=== PATIENT | male | born 1970 | race Caucasian/White ===

== ENCOUNTER → 2017-04-17 | Outpatient (CLI) | payer OTHER ==
[2017-04-17 12:17] LABS: ALT/SGPT 53 U/L (12-78); BLOOD UREA NITROGEN 5 mg/dl (7-18); BUN/CREATININE RATIO 5.6 (10-20); CALCIUM 8.3 mg/dl (8.5-10.1); CARBON DIOXIDE 24 mmol/L (21-32); CHLORIDE 92 mmol/L (98-107); CHOLESTEROL 143 mg/dl (0-200); CREATININE 0.82 mg/dl (0.60-1.40); GLUCOSE,FASTING 93 mg/dl (70-99); POTASSIUM 4.3 mmol/L (3.5-5.1); SODIUM 125 mmol/L (136-145); TRIGLYCERIDES 96 mg/dl (0-150); VERY LOW DENSITY LIPOPROT CALC 19 mg/dl
[2017-04-17 12:20] LABS: ALB/GLOB RATIO 0.9 (0.9-2); ALKALINE PHOSPHATASE 68 U/L (45-117); AST/SGOT 35 U/L (15-37); CHOLESTEROL/HDL RATIO 3.2; HDL CHOLESTEROL 45 mg/dl; LDL CHOLESTEROL CALCULATED 79 mg/dl
== END | disposition home or self-care (01) ==
LOC: C.LABPBG 09:55
PROVIDERS: ATTEND Physician Assistant
DX: Z00.00 Encounter for general adult medical examination without abnormal findings (principal)

== ENCOUNTER → 2017-05-10 | Outpatient (CLI) | payer OTHER ==
[2017-05-10 12:42] LABS: BLOOD UREA NITROGEN 6 mg/dl (7-18); BUN/CREATININE RATIO 6.7 (10-20); CREATININE 0.89 mg/dl (0.60-1.40)
== END | disposition home or self-care (01) ==
LOC: C.LABPBG 08:21
PROVIDERS: ATTEND Physician Assistant
DX: R79.89 Other specified abnormal findings of blood chemistry (principal)

== ENCOUNTER 2021-04-20 17:09 | Inpatient (IN) ==
[2021-04-20 18:07] LABS: Basophils # (auto) 0.02 K/uL (0-0.2); Basophils % (auto) 0.4 %; Eosinophils # (auto) 0.17 K/uL (0-0.5); Eosinophils % (auto) 3.4 %; Hematocrit (blood only) 43.8 % (42-52); Hemoglobin 15.3 g/dL (14.0-18.0); Immature Granulocytes # (auto) 0.01 K/uL (0.00-0.02); Immature Granulocytes % (auto) 0.2 %; Lymphocytes # (auto) 1.33 K/uL (1.2-3.4); Lymphocytes % (auto) 26.5 %; Mean Corpuscular Hemoglobin 33.9 pg (25-34); Mean Corpuscular Hgb Conc 34.9 g/dL (32-36); Mean Corpuscular Volume 97.1 fL (80-100); Mean Platelet Volume 8.5 fL (7.4-10.4); Monocytes # (auto) 0.49 K/uL (0.11-0.59); Monocytes % (auto) 9.8 %; Neutrophils # (auto) 2.99 K/uL (1.4-6.5); Neutrophils % (auto) 59.7 %; Platelet Count 152 K/uL (130-400); RDW Coefficient of Variation 14.2 % (11.5-14.5); RDW Standard Deviation 50.4 fL (36.4-46.3); Red Blood Count 4.51 M/uL (4.7-6.1); White Blood Count 5.01 K/uL (4.8-10.8)
[2021-04-20 18:18] LABS: INR 1.1 (0.9-1.1); Partial Thromboplastin Ratio 0.9; Partial Thromboplastin Time 24.8 Seconds (21.0-31.0)
[2021-04-20 18:23] LABS: Alanine Aminotransferase 69 U/L (12-78); Albumin Level 3.7 gm/dl (3.4-5.0); Aspartate Aminotransferase 60 U/L (15-37); Blood Urea Nitrogen 13 mg/dl (7-18); Calcium 8.8 mg/dl (8.5-10.1); Carbon Dioxide 26 mmol/L (21-32); Chloride 105 mmol/L (98-107); Creatinine Clr Calc Pharmacy 116.1 ml/min; Est GFR (African American) 98.7 ml/min; Est GFR (Non-African American) 85.1 ml/min; Glucose 79 mg/dl (70-99); Potassium 3.6 mmol/L (3.5-5.1); Sodium 138 mmol/L (136-145)
[2021-04-20 18:28] LABS: Albumin Globulin Ratio 0.9 (0.9-2); Alkaline Phosphatase 54 U/L (45-117); Bilirubin,Total 1.4 mg/dl (0.2-1); Total Protein 7.7 gm/dl (6.4-8.2); Troponin I < 0.015 ng/ml (0-0.045)
--- NOTE | 2021-04-20 19:52 | Emergency Department Note ---
Impression & Plan Occipital stroke, Hypertensive crisis, SARS-CoV-2 positive ED Provider Note Name: CARLOS ALBERTO YOUNGBLOOD Age: 50 Sex: M Arrives Via: Walk-In Informant: Patient, ED Provider: Shimon Gutiérrez MD Chief Complaint: HTN Impression: See Above Medical Decision Makin yr old male with history of HTN off his Lisinopril for some time now. Arrives with elevated blood present sent by PCP office. In addition he notes difficulty with focusing his vision for the last four days. No other neuro deficits nor headache. States currently no visual issues. He is quite hy pertensive and several rounds of IV labetalol given. CT with left occipital stroke vs edema. Discussed with Neuro who advised MRI w wo con, CT angio head/neck. Hospitalist consulted while awaiting these. Patient given ASA 324mg PO. He returned positive for covid though I will note he is symptom free at this time and is vaccinated. MRI confirmed stroke, no cerebellar issues noted by Radiologist. No dissection on CTA nor focal thrombus. Symptoms ongoing for the last 4 days and is not TPA candidate nor is there evidence of need for neuro IR. Stable and breathing comfortably. Prior Medical Record and Triage/Nursing Notes reviewed by Me Additional history obtained from chart Differentials:Benign hypertension, hypertensive emergency, cardiovascular pathology, toxicologic, pheochromocytoma, electrolyte abnormality, renal disease, endorgan damage, as well as other pathologies. Vital Signs: reviewed and remarkable for HTN Interventions: saline lock, labetalol IV x 3, asa 324mg PO Labs:Reviewed and remarkable for Covid Positive Imaging:See Below EKG:Per My Interpretation: Indication HTN: NSR 84 bpm, qtc [address] abnormalities V1. No Ectopy. No Ischemia. No previous for comparison Cardiac/Tele Monitoring: Cardiac Monitoring: An Order was placed for continuous cardiac monitoring. The monitor shows a rate of 80 with a normal sinus rhythm. Consults:Dr Wilkinson Neuro, Dr Garcia Hospitalist Plan: Disposition:Hospitalization. Condition: Good History of Present Illness:50 yr old male arrives for evaluation of hypertension. Patient notes several days of not being able to focus his vision properly. No headache, weakness, syncope, blackening of vision, neck pain, sob, cp, nor other symptoms. Seen by PCP and noted severe HTN thus sent to ED for evaluation. Patient denies any symptoms currently. No medications prior to arrival. History of HTN though not on lisinopril for last few years due to stomach discomfort while on it. No trauma, injuries, nor falls. Nothing makes better nor worse. Family history of DMII but not cad, cva. ROS: See above HPI for pertinent positives & negatives. A total of 10 systems reviewed and were otherwise negative. Past Medical History:HTN Past Surgical History:Right hand surgery Family History:Father/Mother DMII, mother cancer Social History:Works at [employer], no drugs, daily etoh, uses chewing tobacco, no smoking Home Medications:None Allergies:NKDA Vitals:Blood Pressure: 255/170, Pulse 88, RR 16, T 36.8C, O2 95% on RA Physical Exam: GENERAL: Patient is well appearing and in no distress. EYES: No scleral icterus, unremarkable pupils. ENT: Mucous membranes moist, no nasal congestion. NECK: No masses appreciated, nomeningismus, trachea is midline. RESPIRATORY: No dyspnea. Clear to auscultation and equal bilaterally. No wheeze, no rhonchi. CARDIOVASCULAR: Regular rate and rhythm.No murmurs, rubs, gallops appreciated. GASTROINTESTINAL: Abdomen soft, non-tender, no peritonitis.Bowel sounds positive.No masses appreciated. BACK: No midline tenderness, no CVA tenderness EXTREMITIES: Normal motion all extremities, no cyanosis, no edema. NEUROLOGIC: Alert and oriented, no acute motor or sensory deficits, no focal weakness, cranial nerves grossly intact. SKIN: No rash, no jaundice, no diaphoresis. PSYCH: Appropriate GCS: 15 ED Course: Times/Reassessments: gradually improving BP from initial 250s. No neuro deficits. Agreeable to hospitalization Critical Care: I have personally spent 35 minutes of critical care time in the direct management of this patient. Acute Hypertensive Crisis in setting of stroke with multiple antihypertensives IV. This was a life/limb threatening event. This 35 minutes is in excess of all separately billable procedures. Shimon Gutiérrez MD Past Med/Surg History Social History Smoking Status: Never smoker Tobacco Type: Cigarettes and Smokeless Tobacco (Dip or Chew) Second Hand Exposure: No; Do You Dip or Chew Tobacco: Yes; Tobacco Cessation Education Requested by Patient: No Hx Alcohol Use: Yes Alcohol type: beer Hx Substance Use: No Preferred Language: Thai Communication Ability: Effective Geospatial Information Scientist Required: No Beliefs That Will Affect Care: None Current Living Situation: Other Current Living Situation Comment: significant other Other Information That Helps Us Care for You: No Feels Safe at Home: Yes Safety Concerns: Feels Safe At This Time Assistive Devices: Glasses Allergies Allergies Allergy/AdvReac Type Severity Reaction Status Date / Time No Known Allergies Allergy Unverified 04/20/21 20:50 Home Meds Home Medications Medication Instructions Recorded Confirmed No Known Home Medications 04/20/21 04/20/21 Results & Data (ED) Vital Signs Vital Signs - 24 hr 04/20/21 17:21 04/20/21 20:04 04/20/21 20:08 Temperature 36.8 C Temperature Source Temporal Artery Scan Pulse Rate 88 77 Pulse Rate from SpO2 Sensor 77 Respiratory Rate 16 18 Blood Pressure 223/139 H 201/165 H Blood Pressure Mean 167 177 Pulse Oximetry 95 96 96 Oxygen Delivery Method Room Air Room Air Sepsis Recent Fever Within 48 Hours No Sepsis New/Unexplained Change in Mental Status No Sepsis Action Taken by Nursing No Action Required 04/20/21 20:37 04/20/21 21:00 04/20/21 21:26 Temperature Temperature Source Pulse Rate 79 74 76 Pulse Rate from SpO2 Sensor 72 73 76 Respiratory Rate 22 19 19 Blood Pressure 210/142 H 221/139 H 219/133 H Blood Pressure Mean 164 166 161 Pulse Oximetry 95 95 96 Oxygen Delivery Method Sepsis Recent Fever Within 48 Hours Sepsis New/Unexplained Change in Mental Status Sepsis Action Taken by Nursing 04/20/21 21:30 04/20/21 22:02 04/20/21 23:07 Temperature Temperature Source Pulse Rate 75 73 Pulse Rate from SpO2 Sensor 76 74 Respiratory Rate 22 20 14 Blood Pressure 210/147 H Blood Pressure Mean 168 Pulse Oximetry 96 96 Oxygen Delivery Method Sepsis Recent Fever Within 48 Hours Sepsis New/Unexplained Change in Mental Status Sepsis Action Taken by Nursing 04/20/21 23:30 Temperature Temperature Source Pulse Rate 70 Pulse Rate from SpO2 Sensor 70 Respiratory Rate 20 Blood Pressure Blood Pressure Mean Pulse Oximetry 95 Oxygen Delivery Method Sepsis Recent Fever Within 48 Hours Sepsis New/Unexplained Change in Mental Status Sepsis Action Taken by Nursing Laboratory Data Result diagrams: 04/20/21 17:48 04/20/21 17:48 Lab Results 04/20/21 04/20/21 04/20/21 Range/Units 17:48 17:48 17:48 WBC 5.01 (4.8-10.8) K/uL RBC 4.51 L (4.7-6.1) M/uL Hgb 15.3 (14.0-18.0) g/dL Hct 43.8 (42-52) % MCV 97.1 (80-100) fL MCH 33.9 (25-34) pg MCHC 34.9 (32-36) g/dL RDW Std Deviation 50.4 H (36.4-46.3) fL RDW Coeff of Chanell 14.2 (11.5-14.5) % Plt Count 152 (130-400) K/uL MPV 8.5 (7.4-10.4) fL Immature Gran % (Auto) 0.2 % Neut % (Auto) 59.7 % Lymph % (Auto) 26.5 % Pratt % (Auto) 9.8 % Eos % (Auto) 3.4 % Baso % (Auto) 0.4 % Neut # (Auto) 2.99 (1.4-6.5) K/uL Lymph # (Auto) 1.33 (1.2-3.4) K/uL Pratt # (Auto) 0.49 (0.11-0.59) K/uL Eos # (Auto) 0.17 (0-0.5) K/uL Baso # (Auto) 0.02 (0-0.2) K/uL Immature Gran # (Auto) 0.01 (0.00-0.02) K/uL PT 11.0 (9.0-12.0) Seconds INR 1.1 (0.9-1.1) APTT 24.8 (21.0-31.0) Seconds PTT Ratio 0.9 Sodium 138 (136-145) mmol/L Potassium 3.6 (3.5-5.1) mmol/L Chloride 105 (98-107) mmol/L Carbon Dioxide 26 (21-32) mmol/L Anion Gap 7.0 (3-11) BUN 13 (7-18) mg/dl Creatinine 1.01 (0.6-1.4) mg/dl Est Cr Clr Drug Dosing 116.1 ml/min Est GFR ( Amer) 98.7 ml/min Est GFR (Non-Af Amer) 85.1 ml/min BUN/Creatinine Ratio 13.0 (10-20) Glucose 79 (70-99) mg/dl Calcium 8.8 (8.5-10.1) mg/dl Magnesium 1.8 (1.8-2.4) mg/dl Total Bilirubin 1.4 H (0.2-1) mg/dl AST 60 H (15-37) U/L ALT 69 (12-78) U/L Alkaline Phosphatase 54 (45-117) U/L Troponin I < 0.015 (0-0.045) ng/ml Total Protein 7.7 (6.4-8.2) gm/dl Albumin 3.7 (3.4-5.0) gm/dl Globulin 4.0 (2.5-4.0) gm/dl Albumin/Globulin Ratio 0.9 (0.9-2) TSH 8.310 H (0.300-4.500) uIu/ml Free T4 1.06 (0.8-1.6) ng/dl COVID-19 Eval Order SARS-CoV-2 (PCR) (Negative) 04/20/21 04/20/21 Range/Units 20:00 20:00 WBC (4.8-10.8) K/uL RBC (4.7-6.1) M/uL Hgb (14.0-18.0) g/dL Hct (42-52) % MCV (80-100) fL MCH (25-34) pg MCHC (32-36) g/dL RDW Std Deviation (36.4-46.3) fL RDW Coeff of Chanell (11.5-14.5) % Plt Count (130-400) K/uL MPV (7.4-10.4) fL Immature Gran % (Auto) % Neut % (Auto) % Lymph % (Auto) % Pratt % (Auto) % Eos % (Auto) % Baso % (Auto) % Neut # (Auto) (1.4-6.5) K/uL Lymph # (Auto) (1.2-3.4) K/uL Pratt # (Auto) (0.11-0.59) K/uL Eos # (Auto) (0-0.5) K/uL Baso # (Auto) (0-0.2) K/uL Immature Gran # (Auto) (0.00-0.02) K/uL PT (9.0-12.0) Seconds INR (0.9-1.1) APTT (21.0-31.0) Seconds PTT Ratio Sodium (136-145) mmol/L Potassium (3.5-5.1) mmol/L Chloride (98-107) mmol/L Carbon Dioxide (21-32) mmol/L Anion Gap (3-11) BUN (7-18) mg/dl Creatinine (0.6-1.4) mg/dl Est Cr Clr Drug Dosing ml/min Est GFR ( Amer) ml/min Est GFR (Non-Af Amer) ml/min BUN/Creatinine Ratio (10-20) Glucose (70-99) mg/dl Calcium (8.5-10.1) mg/dl Magnesium (1.8-2.4) mg/dl Total Bilirubin (0.2-1) mg/dl AST (15-37) U/L ALT (12-78) U/L Alkaline Phosphatase (45-117) U/L Troponin I (0-0.045) ng/ml Total Protein (6.4-8.2) gm/dl Albumin (3.4-5.0) gm/dl Globulin (2.5-4.0) gm/dl Albumin/Globulin Ratio (0.9-2) TSH (0.300-4.500) uIu/ml Free T4 (0.8-1.6) ng/dl COVID-19 Eval Order Covid19 at [facility] SARS-CoV-2 (PCR) POSITIVE A* (Negative) Administered Medications Potassium Chloride 40 meq/ (Sodium Chloride) 1,020 mls @ 50 mls/hr IV .[id number] ONE Stop: 04/21/21 22:08 Last Admin: 04/21/21 02:20 Dose: 50 mls/hr Documented by: [id number] Discontinued Medications Aspirin (Aspirin Chew 324 Mg) 324 mg PO NOW STA Stop: 04/20/21 21:13 Last Admin: 04/20/21 21:25 Dose: 324 mg Documented by: [id number] Gadobutrol (Gadobutrol 65ml Vial) 12.5 ml IV ONCE ONE Stop: 04/20/21 22:55 Last Admin: 04/20/21 22:54 Dose: 12.5 ml Documented by: [id number] Hydralazine HCl (Hydralazine Hcl 20 Mg/Ml Vial) 5 mg IV NOW ONE Stop: 04/21/21 00:45 Last Admin: 04/21/21 01:00 Dose: Not Given Documented by: [id number] Hydralazine HCl (Hydralazine Hcl 20 Mg/Ml Vial) Confirm Administered Dose 20 mg .ROUTE .STK-MED ONE Stop: 04/21/21 00:49 Last Increment: 04/21/21 01:00 Dose: 5 mg Documented by: [id number] Thiamine HCl 100 mg/ Syringe 10 mls @ 2 mls/min IV NOW STA Stop: 04/20/21 22:05 Last Admin: 04/20/21 23:08 Dose: 2 mls/min Documented by: [id number] Ioversol (Optiray 320 125ml) 117 ml IV ONCE ONE Stop: 04/20/21 22:09 Last Admin: 04/20/21 22:08 Dose: 117 ml Documented by: [id number] Labetalol HCl (Labetalol Hcl Iv 5 Mg/Ml 20ml) 10 mg IV NOW STA Stop: 04/20/21 20:30 Last Admin: 04/20/21 20:36 Dose: 10 mg Documented by: [id number] Cosigned by: [id number] Labetalol HCl (Labetalol Hcl Iv 5 Mg/Ml 20ml) 10 mg IV NOW STA Stop: 04/20/21 21:06 Last Admin: 04/20/21 21:24 Dose: 10 mg Documented by: [id number] Cosigned by: [id number] Lisinopril (Lisinopril 5 Mg Tab) 5 mg PO NOW ONE Stop: 04/21/21 00:18 Last Admin: 04/21/21 00:30 Dose: 5 mg Documented by: [id number] Imaging Data Radiologist's Impression: Chest X-Ray 04/20/21 17:24 SINGLE VIEW CHEST CLINICAL HISTORY: Atypical chest pain. FINDINGS: 2 AP, portable, upright chest radiographs are obtained. No prior studies are available for comparison at the time of dictation. The examination is degraded by portable technique and apical lordotic positioning. The heart is enlarged. The pulmonary vasculature is noncongested. There is bibasilar atelectasis. The lungs and pleural spaces are otherwise clear. No pneumothorax is seen. The bony thorax is grossly intact. IMPRESSION: Cardiomegaly with no active disease in the chest. ACT 112: Negative or not required by law. Electronically signed by: Zion Nino M.D. 04/20/2021 8:[address] 04/20/21 19:47 CT SCAN OF THE BRAIN WITHOUT IV CONTRAST CLINICAL HISTORY: Hypertension. Visual disturbances. COMPARISON STUDY: No priors. TECHNIQUE: Unenhanced axial CT scan of the brain is performed from the vertex to the skull base. A dose lowering technique was utilized adhering to the principles of ALARA. CT DOSE: 638.56 mGycm FINDINGS: Brain parenchyma: There is a 2.6 cm focus of edema with loss of cardona-white matter differentiation in the left occipital cortex seen on image #12. There is no clear evidence of hemorrhage, no significant mass effect. No additional similar-appearing foci are seen throughout the remainder of the brain parenchyma. No extra-axial fluid collection is seen. Ventricles, sulci, cisterns: Normal in configuration. Intracranial vasculature: There is mild atherosclerotic calcification of the cavernous carotid and vertebral arteries. Calvarium: Unremarkable. Sinuses and mastoids: There is trace mucosal thickening within the ethmoid sinuses. The remaining visualized paranasal sinuses are clear. The mastoid air cells are well pneumatized. Orbits: The bony orbits are grossly intact. IMPRESSION: 1. There is a 2.6 cm focus of edema with loss of cardona-white matter differentiation in the left occipital cortex. This could represent a subacute infarct or possibly a mass lesion. Correlation with a contrast-enhanced MRI of the brain is recommended for further assessment. 2. No hemorrhage is seen. 3. There is no midline shift additional similar-appearing lesions seen throughout the brain parenchyma. ACT 112: Negative or not required by law. Electronically signed by: Zion Nino M.D. 04/20/2021 8:35 PM Discharge Plan Visit Data Chief Complaint: Hypertension Stated Complaint: HYPERTENSION ED Provider: Shimon Gutiérrez Discharge Problem: Occipital stroke, Hypertensive crisis, SARS-CoV-2 positive Discharge Instructions Interventions: ED Discharge Assessment Last Done: 04/21/21 01:00
--- NOTE | 2021-04-20 20:18 | XRay Report ---
SINGLE VIEW CHEST CLINICAL HISTORY: Atypical chest pain. FINDINGS: 2 AP, portable, upright chest radiographs are obtained. No prior studies are available for comparison at the time of dictation. The examination is degraded by portable technique and apical [place] dotic positioning. The heart is enlarged. The pulmonary vasculature is noncongested. There is bibasil ar atelectasis. The lungs and pleural spaces are otherwise clear. No pneumothorax is seen. The bony t horax is grossly intact. IMPRESSION: Cardiomegaly with no active disease in the chest. ACT 112: Negative or not required by law. Electronically signed by: Zion Nino M.D. 04/20/2021 8:16 PM
[2021-04-20] MEDS ORDERED: LABETALOL HCL IV 5 MG/ML 20ML IV STA ×2 (20:29→21:05)
--- NOTE | 2021-04-20 20:37 | CT Scan Report ---
CT SCAN OF THE BRAIN WITHOUT IV CONTRAST CLINICAL HISTORY: Hypertension. Visual disturbances. COMPARISON STUDY: No priors. TECHNIQUE: Unenhanced axial CT scan of the brain is performed from the vertex to the skull base. A d ose lowering technique was utilized adhering to the principles of ALARA. CT DOSE: 638.56 mGycm FINDINGS: Brain parenchyma: There is a 2.6 cm focus of edema with loss of cardona-white matter differentiation in the left occipital cortex seen on image #12. There is no clear evidence of hemorrhage, no significant mass effect. No additional similar-appearing foci are seen throughout the remainder of the brain par enchyma. No extra-axial fluid collection is seen. Ventricles, sulci, cisterns: Normal in configuration. Intracranial vasculature: There is mild atherosclerotic calcification of the cavernous carotid and ve rtebral arteries. Calvarium: Unremarkable. Sinuses and mastoids: There is trace mucosal thickening within the ethmoid sinuses. The remaining vis ualized paranasal sinuses are clear. The mastoid air cells are well pneumatized. Orbits: The bony orbits are grossly intact. IMPRESSION: 1. There is a 2.6 cm focus of edema with loss of cardona-white matter differentiation in the left occipi garret cortex. This could represent a subacute infarct or possibly a mass lesion. Correlation with a con trast-enhanced MRI of the brain is recommended for further assessment. 2. No hemorrhage is seen. 3. There is no midline shift additional similar-appearing lesions seen throughout the brain parenchym a. ACT 112: Negative or not required by law. Electronically signed by: Zion Nino M.D. 04/20/2021 8:35 PM
[2021-04-20] MEDS ORDERED: ASPIRIN CHEW 324 MG PO STA (21:12)
[2021-04-20 21:49] LABS: Magnesium 1.8 mg/dl (1.8-2.4)
[2021-04-20] MEDS ORDERED: THIAMINE HCL 100 MG in SYRINGE 9 ML IV STA (22:01)
[2021-04-20 22:02] LABS: T4 Free Thyroxine 1.06 ng/dl (0.8-1.6)
[2021-04-20] MEDS ORDERED: OPTIRAY 320 125ml IV ONE (22:08)
[2021-04-20] MEDS ORDERED: GADOBUTROL 65ML VIAL IV ONE (22:54)
--- NOTE | 2021-04-20 23:55 | History & Physical Report ---
Date of Service April 20, 2021 Assessment & Plan (1) Occipital stroke: Plan: Presenting as alexia Hypertensive crisis secondary to above History medication noncompliance Alcohol abuse contributory Alcoholic hepatitis, good prognosis with low Madrey's DF score asymptomatic COVID-19 infection. past tobacco abuse Medical telemetry Neurochecks Aspirin, statin for secondary stroke prevention TTE for additional stroke work-up Check lipid profile Permissive hypertension, initiate low-dose lisinopril if SBP persistently above 200s HARSHIL S, DT precautions Neurology consult Re: Occipital stroke (ER provider already in touch with Dr. Wilkinson.) COVID-19 precautions DVT prophylaxis. Lovenox subcu Full code Patient partner requesting updates from providers. Ms. Gosia De La Torre, contact #[phone]. Text document was generated using [employer] voice recognition software. It may contain grammatical or spelling errors. Kindly contact undersigned for clarification of any documentation item in question. ADDENDUM : Notified by SENIOR CONTROLS ANALYST of apneic episodes during sleep, episodic sinus pauses/bradycardia on the floor. Possible sleep disordered breathing. Episodic bradyarrhythmia secondary to above. Outpatient sleep study. Avoid as needed labetalol for uncontrolled BP. History of Present Illness Chief Complaint: Cannot understand what I'm reading Primary Care Provider: Bhavesh José DO History obtained from patient and records. Medical history significant for hypertension, alcohol abuse, past tobacco abuse, medication noncompliance. Patient has not seen his PCP for about 4 years. Last office visit October 2016. Patient also stopped taking lisinopril for blood pressure at that time because he did not think he needed it. Patient having trouble reading words the last few days. Vision not blurred. Not able to understand what I am reading as per patient. No prior episodes. No headache, no chest pain, no S OB, no cough. No arm/leg weakness. No slurred speech or facial droop noted by . SBP 200s at PCPs office today. Patient directed to ER for further management. Aspirin and labetalol administered at the ER. Medical History as above Patient completed COVID-19 vaccination. 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, mechanical technician Allergies Allergy/AdvReac Type Severity Reaction Status Date / Time No Known Allergies Allergy Unverified 04/20/21 20:50 Home Medications Medication Instructions Recorded Confirmed Type No Known Home Medications 04/20/21 04/20/21 History Past Med/Surg History Social History Smoking Status: Never smoker Tobacco Type: Cigarettes and Smokeless Tobacco (Dip or Chew) Second Hand Exposure: No; Do You Dip or Chew Tobacco: Yes; Tobacco Cessation Education Requested by Patient: No Hx Alcohol Use: Yes Alcohol type: beer Hx Substance Use: No Preferred Language: Vincentian Communication Ability: Effective Drywall Hanger Required: No Beliefs That Will Affect Care: None Current Living Situation: Other Current Living Situation Comment: significant other Other Information That Helps Us Care for You: No Feels Safe at Home: Yes Safety Concerns: Feels Safe At This Time Assistive Devices: Glasses Review of Systems Review of Systems: As per HPI, all 10 systems reviewed, all other ROS negative Physical Exam Physical Exam: GENERAL: Comfortable, morbidly obese, pleasant, no respiratory distress SKIN: Normal color, warm HEENT: Healed scar frontal area, [place] palpebral conjunctivae, no ptosis, dry buccal mucosa NECK : Supple, short neck, no tenderness CHEST : CTA, no tenderness HEART : RRR, no obvious murmurs ABDOMEN: Some distention, nontender EXTREMITIES : Minimal LE swelling, no LE tenderness, no other conspicuous deformities noted NEUROLOGIC : Coherent, gross visual activity intact, no facial asymmetry, no other gross focality Results & Data Results & Data ([facility]) Vital Signs (Past 12 Hours) Vital Signs Temp Pulse Resp BP Pulse Ox 04/20/21 22:02 73 20 96 04/20/21 21:30 75 22 210/147 H 96 04/20/21 21:26 76 19 219/133 H 96 04/20/21 21:00 74 19 221/139 H 95 04/20/21 20:37 79 22 210/142 H 95 04/20/21 20:08 96 04/20/21 20:04 77 18 201/165 H 96 04/20/21 17:21 36.8 C 88 16 223/139 H 95 Laboratory Results Laboratory Results WBC 4.56 K/uL (4.8-10.8) L 04/21/21 06:19 RBC 4.47 M/uL (4.7-6.1) L 04/21/21 06:19 Hgb 15.3 g/dL (14.0-18.0) 04/21/21 06:19 Hct 43.7 % (42-52) 04/21/21 06:19 MCV 97.8 fL (80-100) 04/21/21 06:19 MCH 34.2 pg (25-34) H 04/21/21 06:19 MCHC 35.0 g/dL (32-36) 04/21/21 06:19 RDW Std Deviation 51.1 fL (36.4-46.3) H 04/21/21 06:19 RDW Coeff of Chanell 14.3 % (11.5-14.5) 04/21/21 06:19 Plt Count 149 K/uL (130-400) 04/21/21 06:19 MPV 8.4 fL (7.4-10.4) 04/21/21 06:19 Immature Gran % (Auto) 0.2 % 04/21/21 06:19 Neut % (Auto) 55.5 % 04/21/21 06:19 Lymph % (Auto) 28.5 % 04/21/21 06:19 [place] % (Auto) 10.5 % 04/21/21 06:19 Eos % (Auto) 4.2 % 04/21/21 06:19 Baso % (Auto) 1.1 % 04/21/21 06:19 Neut # (Auto) 2.53 K/uL (1.4-6.5) 04/21/21 06:19 Lymph # (Auto) 1.30 K/uL (1.2-3.4) 04/21/21 06:19 [place] # (Auto) 0.48 K/uL (0.11-0.59) 04/21/21 06:19 Eos # (Auto) 0.19 K/uL (0-0.5) 04/21/21 06:19 Baso # (Auto) 0.05 K/uL (0-0.2) 04/21/21 06:19 Immature Gran # (Auto) 0.01 K/uL (0.00-0.02) 04/21/21 06:19 PT 11.0 Seconds (9.0-12.0) 04/20/21 17:48 INR 1.1 (0.9-1.1) 04/20/21 17:48 APTT 24.8 Seconds (21.0-31.0) 04/20/21 17:48 PTT Ratio 0.9 04/20/21 17:48 Sodium 137 mmol/L (136-145) 04/21/21 06:19 Potassium 4.1 mmol/L (3.5-5.1) 04/21/21 06:19 Chloride 104 mmol/L (98-107) 04/21/21 06:19 Carbon Dioxide 26 mmol/L (21-32) 04/21/21 06:19 Anion Gap 7.0 (3-11) 04/21/21 06:19 BUN 13 mg/dl (7-18) 04/21/21 06:19 Creatinine 1.05 mg/dl (0.6-1.4) 04/21/21 06:19 Est Cr Clr Drug Dosing 110.5 ml/min 04/21/21 06:19 Est GFR ( Amer) 94.1 ml/min 04/21/21 06:19 Est GFR (Non-Af Amer) 81.2 ml/min 04/21/21 06:19 BUN/Creatinine Ratio 12.6 (10-20) 04/21/21 06:19 Glucose 100 mg/dl (70-99) H 04/21/21 06:19 Calcium 8.9 mg/dl (8.5-10.1) 04/21/21 06:19 Magnesium 1.8 mg/dl (1.8-2.4) 04/20/21 17:48 Total Bilirubin 1.5 mg/dl (0.2-1) H 04/21/21 06:19 Direct Bilirubin 0.4 mg/dl (0-0.2) H 04/21/21 06:19 AST 52 U/L (15-37) H 04/21/21 06:19 ALT 65 U/L (12-78) 04/21/21 06:19 Alkaline Phosphatase 49 U/L (45-117) 04/21/21 06:19 Troponin I < 0.015 ng/ml (0-0.045) 04/20/21 17:48 Total Protein 7.4 gm/dl (6.4-8.2) 04/21/21 06:19 Albumin 3.5 gm/dl (3.4-5.0) 04/21/21 06:19 Globulin 4.0 gm/dl (2.5-4.0) 04/20/21 17:48 Albumin/Globulin Ratio 0.9 (0.9-2) 04/20/21 17:48 Triglycerides 65 mg/dl (0-150) 04/21/21 06:19 Cholesterol 180 mg/dl (0-200) 04/21/21 06:19 LDL Cholesterol, Calc 117 mg/dl 04/21/21 06:19 VLDL Cholesterol, Calc 13 mg/dl 04/21/21 06:19 HDL Cholesterol 50 mg/dl 04/21/21 06:19 Cholesterol/HDL Ratio 4 04/21/21 06:19 TSH 8.310 uIu/ml (0.300-4.500) H 04/20/21 17:48 Free T4 1.06 ng/dl (0.8-1.6) 04/20/21 17:48 COVID-19 Eval Order Covid19 at [facility] 04/20/21 20:00 SARS-CoV-2 (PCR) POSITIVE (Negative) A* 04/20/21 20:00 Impressions Chest X-Ray 04/20/21 17:24 SINGLE VIEW CHEST CLINICAL HISTORY: Atypical chest pain. FINDINGS: 2 AP, portable, upright chest radiographs are obtained. No prior studies are available for comparison at the time of dictation. The examination is degraded by portable technique and apical lordotic positioning. The heart is enlarged. The pulmonary vasculature is noncongested. There is bibasilar atelectasis. The lungs and pleural spaces are otherwise clear. No pneumothorax is seen. The bony thorax is grossly intact. IMPRESSION: Cardiomegaly with no active disease in the chest. ACT 112: Negative or not required by law. Electronically signed by: Zion Nino M.D. 04/20/2021 8:[address] 04/20/21 19:47 CT SCAN OF THE BRAIN WITHOUT IV CONTRAST CLINICAL HISTORY: Hypertension. Visual disturbances. COMPARISON STUDY: No priors. TECHNIQUE: Unenhanced axial CT scan of the brain is performed from the vertex to the skull base. A dose lowering technique was utilized adhering to the principles of ALARA. CT DOSE: 638.56 mGycm FINDINGS: Brain parenchyma: There is a 2.6 cm focus of edema with loss of cardona-white matter differentiation in the left occipital cortex seen on image #12. There is no clear evidence of hemorrhage, no significant mass effect. No additional similar-appearing foci are seen throughout the remainder of the brain parenchyma. No extra-axial fluid collection is seen. Ventricles, sulci, cisterns: Normal in configuration. Intracranial vasculature: There is mild atherosclerotic calcification of the cavernous carotid and vertebral arteries. Calvarium: Unremarkable. Sinuses and mastoids: There is trace mucosal thickening within the ethmoid sinuses. The remaining visualized paranasal sinuses are clear. The mastoid air cells are well pneumatized. Orbits: The bony orbits are grossly intact. IMPRESSION: 1. There is a 2.6 cm focus of edema with loss of cardona-white matter differentiation in the left occipital cortex. This could represent a subacute infarct or possibly a mass lesion. Correlation with a contrast-enhanced MRI of the brain is recommended for further assessment. 2. No hemorrhage is seen. 3. There is no midline shift additional similar-appearing lesions seen throughout the brain parenchyma. ACT 112: Negative or not required by law. Electronically signed by: Zion Nino M.D. 04/20/2021 8:35 PM Brain MRI 04/20/21 21:05 MRI OF THE BRAIN WITHOUT AND WITH IV CONTRAST CLINICAL HISTORY: occipital infarct vs tumor COMPARISON STUDY: Head CT and CTA of the head April 20, 2021. TECHNIQUE: Utilizing a 1.5 Heaven magnet and dedicated coil, multiplanar, multiecho imaging of the brain was performed pre and postcontrast administration. IV administration of 12.5 mL of Gadavist contrast was uneventful. FINDINGS: Note is made of a 2.7 cm focus of restricted diffusion within the anterolateral aspect of the left occipital lobe which corresponds to the hypodensity on head CT of April 20, 2021. This is mildly hypointense on the ADC map. No additional foci of restricted diffusion are present. This has no associated enhancement. There is no mass effect. There is no hemorrhage. Ventricular system is unremarkable. Basal cisterns are patent. There are no extra-axial collections. Flow-voids for the major intracranial vessels are present. There is no intracranial mass or pathologic enhancement. This study is mildly compromised by motion artifact. Mild white matter T2 hyperintense foci suggest small vessel disease. IMPRESSION: 1. 2.7 cm focus of restricted diffusion within the left occipital lobe consistent with an acute infarct. No hemorrhage. No mass effect. 2. No intracranial mass or pathologic enhancement. ACT 112: Negative or not required by law. Electronically signed by: Adam Roman M.D. 04/21/2021 8:02 AM Head CTA 04/20/21 21:12 CT angio head w con CLINICAL HISTORY: stroke work up TECHNIQUE: CT angiography of the head was performed in a dynamic helical fashion during intravenous administration of 117 cc of Optiray. MIP imaging was performed. A dose lowering technique was utilized adhering to the principles of ALARA. CT DOSE: 658.77 mGy.cm COMPARISON STUDY: No previous studies for comparison. FINDINGS: Bilateral middle cerebral and anterior cerebral arteries are normally opacified throughout its course without evidence of focal occlusion or significant stenosis. Right and left anterior cerebral arteries are normally opacified. Basilar artery is patent. Bilateral posterior cerebral arteries are normally opacified. Hypoplastic right and left posterior cerebral arteries are seen likely representing developmental variant. Incidental findings of punctate calcification associated with opacified vascular structures within lateral sulcus. IMPRESSION: No evidence of focal occlusion, significant stenosis or aneurysmal dilatation. The rest of findings as above. ACT 112: Negative or not required by law. The above report was generated using voice recognition software. It may contain grammatical, syntax or spelling errors. Electronically signed by: Chloé Heredia DO 04/21/2021 8:35 AM Neck CTA 04/20/21 21:12 CT angio neck with con CLINICAL HISTORY: Occipital stroke COMPARISON STUDY: No previous studies for comparison. TECHNIQUE: CT angiography was performed from the aortic arch to the skull base. MIP imaging was performed. The patient was scanned in a dynamic helical fashion during intravenous administration of 117 cc of Optiray. A dose lowering technique was utilized adhering to the principles of ALARA. CT DOSE: Technique: CT angiogram of the carotid and vertebral arteries was obtained using intravenous contrast and 3-D reconstruction. NASCET criteria was utilized. Findings: Minimal atherosclerotic involvement and tortuous course of bilateral carotid and vertebral arteries. The right carotid revealed no evidence of aneurysm and no evidence of dissection. There is no evidence of hemodynamic significant stenosis. The left carotid revealed no evidence of hemodynamic significant stenosis. There is no evidence of aneurysm. There is no evidence of dissection. There is no evidence of hemodynamically significant vertebral stenosis. There is no evidence of vertebral dissection. IMPRESSION: No evidence of hemodynamically significant carotid or vertebral artery stenosis. No evidence of dissection. ACT 112: Negative or not required by law. The above report was generated using voice recognition software. It may contain grammatical, syntax or spelling errors. Electronically signed by: Chloé Heredia DO 04/21/2021 8:22 AM Diagnostic Findings EKG as per my interpretation rate 85, NSR, LAD, LAFB, incomplete RBBB, LVH, T wave flattening lateral and inferior leads
[2021-04-21] MEDS ORDERED: lisinopril 5 MG TAB PO ONE (00:17)
[2021-04-21] MEDS ORDERED: hydrALAZINE HCL 20 MG/ML VIAL IV ONE (00:44)
[2021-04-21] MEDS ORDERED: hydrALAZINE HCL 20 MG/ML VIAL ONE (00:48)
[2021-04-21] MEDS ORDERED: NITROGLYCERIN SL 0.4 MG/TAB TAB SL PRN (01:33)
[2021-04-21] MEDS ORDERED: LORazepam 1 MG/2 ML VIAL IV PRN (01:33)
[2021-04-21] MEDS ORDERED: PROMETHAZINE HCL 12.5 MG in SODIUM CHLORIDE 0.9% 50 ML IV PRN (01:33)
[2021-04-21] MEDS ORDERED: PHARMACIST DISCHARGE MED REC CONSULT PRN (01:33)
[2021-04-21] MEDS ORDERED: ATIVAN IV ALCOHOL WITHDRAWL IV PRN (01:33)
[2021-04-21] MEDS ORDERED: LORazepam 2 MG/4 ML VIAL IV PRN (01:33)
[2021-04-21] MEDS ORDERED: LORazepam 3 MG/6 ML VIAL IV PRN (01:33)
[2021-04-21] MEDS ORDERED: oxyCODONE HCL IR 5 MG TAB (IMMEDIATE RELEASE) PO PRN (01:33)
[2021-04-21] MEDS ORDERED: POTASSIUM CHLORIDE 40 MEQ in SODIUM CHLORIDE 0.9% 1000ML 1,000 ML IV ONE (01:45)
[2021-04-21] MEDS ORDERED: POTASSIUM CHLORIDE CRTAB 20 MEQ TABCR PO STA (03:40)
[2021-04-21] MEDS ORDERED: ATROPINE SULFATE 0.1 MG/ML 5ML SYR IV PRN (03:42)
[2021-04-21] MEDS ORDERED: MAGNESIUM SULFATE / D5W 1 GM/100 ML BAG IV ONE (03:45)
[2021-04-21 06:42] LABS: Basophils # (auto) 0.05 K/uL (0-0.2); Basophils % (auto) 1.1 %; Eosinophils # (auto) 0.19 K/uL (0-0.5); Eosinophils % (auto) 4.2 %; Hematocrit (blood only) 43.7 % (42-52); Hemoglobin 15.3 g/dL (14.0-18.0); Immature Granulocytes # (auto) 0.01 K/uL (0.00-0.02); Immature Granulocytes % (auto) 0.2 %; Lymphocytes % (auto) 28.5 %; Mean Corpuscular Hemoglobin 34.2 pg (25-34); Mean Corpuscular Volume 97.8 fL (80-100); Mean Platelet Volume 8.4 fL (7.4-10.4); Monocytes # (auto) 0.48 K/uL (0.11-0.59); Monocytes % (auto) 10.5 %; Neutrophils # (auto) 2.53 K/uL (1.4-6.5); Neutrophils % (auto) 55.5 %; Platelet Count 149 K/uL (130-400); RDW Coefficient of Variation 14.3 % (11.5-14.5); RDW Standard Deviation 51.1 fL (36.4-46.3); Red Blood Count 4.47 M/uL (4.7-6.1); White Blood Count 4.56 K/uL (4.8-10.8)
[2021-04-21 07:13] LABS: Albumin Level 3.5 gm/dl (3.4-5.0); BUN Creatinine Ratio 12.6 (10-20); Bilirubin Direct 0.4 mg/dl (0-0.2); Calcium 8.9 mg/dl (8.5-10.1); Creatinine Clr Calc Pharmacy 110.5 ml/min; Est GFR (African American) 94.1 ml/min; Est GFR (Non-African American) 81.2 ml/min; Potassium 4.1 mmol/L (3.5-5.1)
[2021-04-21 07:16] LABS: Bilirubin,Total 1.5 mg/dl (0.2-1); Total Protein 7.4 gm/dl (6.4-8.2)
--- NOTE | 2021-04-21 08:04 | Magnetic Resonance Report ---
MRI OF THE BRAIN WITHOUT AND WITH IV CONTRAST CLINICAL HISTORY: occipital infarct vs tumor COMPARISON STUDY: Head CT and CTA of the head April 20, 2021. TECHNIQUE: Utilizing a 1.5 Heaven magnet and dedicated coil, multiplanar, multiecho imaging of the br ain was performed pre and postcontrast administration. IV administration of 12.5 mL of Gadavist cont rast was uneventful. FINDINGS: Note is made of a 2.7 cm focus of restricted diffusion within the anterolateral aspect of t he left occipital lobe which corresponds to the hypodensity on head CT of April 20, 2021. This is mi ldly hypointense on the ADC map. No additional foci of restricted diffusion are present. This has no associated enhancement. There is no mass effect. There is no hemorrhage. Ventricular system is unrema rkable. Basal cisterns are patent. There are no extra-axial collections. Flow-voids for the major int racranial vessels are present. There is no intracranial mass or pathologic enhancement. This study is mildly compromised by motion artifact. Mild white matter T2 hyperintense foci suggest small vessel d isease. IMPRESSION: 1. 2.7 cm focus of restricted diffusion within the left occipital lobe consistent with an acute infar ct. No hemorrhage. No mass effect. 2. No intracranial mass or pathologic enhancement. ACT 112: Negative or not required by law. Electronically signed by: Adam Roman M.D. 04/21/2021 8:02 AM
[2021-04-21] MEDS: MULTIVITAMIN TAB PO SCH (08:23)
[2021-04-21] MEDS: THIAMINE HCL 100 MG TAB PO SCH (08:23)
[2021-04-21] MEDS: FOLIC ACID 1 MG TAB PO SCH (08:23)
[2021-04-21] MEDS: ATORVASTATIN 40 MG TAB PO SCH (08:23)
[2021-04-21] MEDS: ASPIRIN 81 MG ECTAB PO SCH (08:23)
--- NOTE | 2021-04-21 08:23 | CT Scan Report ---
CT angio neck with con CLINICAL HISTORY: Occipital stroke COMPARISON STUDY: No previous studies for comparison. TECHNIQUE: CT angiography was performed from the aortic arch to the skull base. MIP imaging was perfo rmed. The patient was scanned in a dynamic helical fashion during intravenous administration of 117 c c of Optiray. A dose lowering technique was utilized adhering to the principles of ALARA. CT DOSE: Technique: CT angiogram of the carotid and vertebral arteries was obtained using intravenous contrast and 3-D reconstruction. NASCET criteria was utilized. Findings: Minimal atherosclerotic involvement and tortuous course of bilateral carotid and vertebral arteries. The right carotid revealed no evidence of aneurysm and no evidence of dissection. There is no evidenc e of hemodynamic significant stenosis. The left carotid revealed no evidence of hemodynamic significant stenosis. There is no evidence of an eurysm. There is no evidence of dissection. There is no evidence of hemodynamically significant vertebral stenosis. There is no evidence of verte bral dissection. IMPRESSION: No evidence of hemodynamically significant carotid or vertebral artery stenosis. No evidence of disse ction. ACT 112: Negative or not required by law. The above report was generated using voice recognition software. It may contain grammatical, syntax o r spelling errors. Electronically signed by: Chloé Heredia DO 04/21/2021 8:22 AM
[2021-04-21] MEDS: ENOXAPARIN INJ 40 MG/0.4 ML SYR SQ SCH (08:24)
--- NOTE | 2021-04-21 08:37 | CT Scan Report ---
CT angio head w con CLINICAL HISTORY: stroke work up TECHNIQUE: CT angiography of the head was performed in a dynamic helical fashion during intravenous a dministration of 117 cc of Optiray. MIP imaging was performed. A dose lowering technique was utilized adhering to the principles of ALARA. CT DOSE: 658.77 mGy.cm COMPARISON STUDY: No previous studies for comparison. FINDINGS: Bilateral middle cerebral and anterior cerebral arteries are normally opacified throughout its course without evidence of focal occlusion or significant stenosis. Right and left anterior cerebral arteries are normally opacified. Basilar artery is patent. Bilateral posterior cerebral arteries are normally opacified. Hypoplastic right and left posterior ce rebral arteries are seen likely representing developmental variant. Incidental findings of punctate calcification associated with opacified vascular structures within la teral sulcus. IMPRESSION: No evidence of focal occlusion, significant stenosis or aneurysmal dilatation. The rest of findings as above. ACT 112: Negative or not required by law. The above report was generated using voice recognition software. It may contain grammatical, syntax o r spelling errors. Electronically signed by: Chloé Heredia DO 04/21/2021 8:35 AM
[2021-04-21] MEDS ORDERED: ENOXAPARIN INJ 40 MG/0.4 ML SYR SQ SCH (09:00)
--- NOTE | 2021-04-21 16:07 | Communication Note ---
Date of Service: April 21, 2021 Hawk is 50 years old has a history of hypertension poor compliance with medications having stopped his antihypertensives several years ago and having no follow-up since then, has had Covid in the spring received his Covid vaccination with [employer] and had a pretty significant reaction and February and now presents with an acute likely embolic CVA involving I would assume posterior branches of the left middle cerebral artery with involvement of the medial aspect of the dominant temporal lobe manifested by difficulty reading and some low-grade confusion but not apparently any problems with speech generation, word finding, or writing although he admits he is not trying to write. All of the symptoms began last Monday in the morning and he thought that they were clear. There was no associated headache no numbness or tingling no paresis of the right face or arm no gait disturbance but he then contacted the physician and was promptly sent to the hospital last night from our [facility] facility after CAT scan showed evidence for a recent CVA involving the left medial temporal lobe. He subsequently had CT angiography studies which showed no significant intracranial extracranial disease involving the carotid middle cerebral or vertebrobasilar systems, an MRI has confirmed the presence of the infarction and he was found to be Covid positive so he is in the Covid unit With regard to the latter he specifically denies any recent fever sweats chills upper respiratory tract issues shortness of breath cough myalgias fatigue paresthesias etc. Social history reveals him to be a significant consumer of ethanol non-smoker and to be living with his significant other Family history is noncontributory Review of systems basically is as above i.e. prior history of hypertension no recent symptoms other than the issues with his Covid infection and vaccine reactions and recurrent CVA and he specifically denies any new issues referable to the HEENT, cardiovascular pulmonary gastrointestinal genitourinary musculoskeletal dermatologic or hematologic systems Exam reveals a blood pressure 175/106, pulse of 72 respirations 18 he is afebrile his O2 saturation of 90% on room air He is awake alert and oriented I do not detect any aphasia in the form of neologisms paraphasias word finding issues There is no reading material in the room because of the Covid so I really could not test his ability to read but he seems to be watching television and says he seems to be able to understand certain words. There There was no writing materials I could not test him for agraphia Cranial nerves are quite normal otherwise with no facial asymmetry subjective facial numbness normal eye movements normal visual liu clear speech There is no drift pronation sign tremor tics or choreiform activity facility rapid repetitive motions was normal and gross strength testing was normal. I did not specifically test reflexes having left my equipment of the unit but there was no extensor toe sign or Brenda sign on the right or left side and subjective sensation was intact to light touch and proprioception Imaging studies are described above i.e. no significant extracranial or intracranial vascular lesions are seen and both the CT and MRI confirmed the presence of a recently originating infarction which by history is 4 days old He has been placed on aspirin and an alcohol withdrawal regimen in addition to antihypertensives and a statin as part of the standard stroke protocol 2D echocardiography has been done but report is pending Basic labs showed normal PT and INR, and elevated TSH mildly elevated AST and bilirubin, surprisingly unremarkable lipid profile, and a positive COVID-19 I suspect this is an embolic CVA involving posterior branches of the left middle cerebral artery and with the COVID-19 infection 1 might have to consider a Covid cardiomyopathy as part of the differential diagnosis but also if not related to Covid then paroxysmal atrial fibrillation as he is at risk for this I would add Plavix to the aspirin at this point as part of a standard stroke protocol and continue this for 21 days, he is going to need his blood pressure dropped into the more reasonable range with some permissive hypertension keeping systolic around 1 4150 and diastolic around 80-90, will be on the statin even though his lipid panel does not appear that alkaline, will need his thyroid replaced and will need his echo reviewed obviously We will check back with him tomorrow probably primarily by chart review as the examination is really not that important at this point and shows no large focal deficits He is going to need to be seen by speech but this could probably wait till he is out of the Covid unit and could be done on an outpatient basis Jg Wilkinson MD
--- NOTE | 2021-04-21 16:17 | Hospitalist Progress Note ---
Date of Service April 21, 2021 Assessment & Plan (1) Occipital stroke: Plan: covid-positive alcohol use, tobacco use, obesity and uncontrolled hypertension are all risk factors. Cont Plavix and aspirin per Neuro with Plavix stopped after 3 weeks. He is without deficits and reports his vision has now returned to normal. Cont atorvastatin. Echo pending. (2) Hypertensive crisis: Plan: Improved slightly with lisinopril overnight. As patient's stroke and visual symptoms were one week ago, feel more comfortable trying to lower the blood pressure. He was on lisinopril 3-4 years ago per his report and did well with this medication. Will restart 10mg now and monitor overnight. Repeat dose in am. Notably, alcohol withdrawal may cause worsened hypertension. However, patient reports his last drink was Sat, which was 4 days ago, and he is currently fine without withdrawal symptoms. Low salt diet. (3) SARS-CoV-2 positive: Plan: Asymptomatic. Reports a h/o infection and vaccination in January 2021. No need for treatments at this time. Cont isolation for 10 days since positive test. (4) Tobacco use disorder: Plan: Uses snuff regularly, declines nicotine supplementation at this time. Also, may be contributing to elevated BP. (5) Alcohol dependence: Plan: No S/Sx of withdrawal, except that he is hypertensive. Lorazepam PRN (6) Alcoholic hepatitis: Plan: Elevated LFTs and total bili 1.5. No indication for steroids. Likely related to alcohol use. Should no preclude use of statin therapy for secondary prevention of stroke. I counseled him on the risks here and effects on his liver. Will need to stop alcohol altogether. Repeat labwork as outpatient with PCP and further investigation into this as needed. (7) Obesity: Plan: Lifestyle changes recommended. He will also need a sleep study after discharge in setting of HTN as this may be secondary to uncontrolled sleep apnea. (8) DVT prophylaxis: Plan: Lovenox Full Dispo-to home in am so long as still feeling well and BP in a more controlled range. [facility] Admission and Anticipated Discharge Date Admission Date: April 20, 2021 Subjective 50 yo M who is dependent on alcohol, reportedly drinks 1.5 case per day, stopped on Monday prior to admission becuase of stroke symptoms. Also chews snuff regularly. Doesn't feel any withdrawal symptoms. Reports his vision is improving. Denies any respiratory symptoms including no cough, fevers, chills, diarrhea, SOB. Reports a previous COVID infection and a vaccination in January. Tolerating PO Review of Systems Review of Systems: At least ten systems were reviewed and negative except as indicated in HPI above. Physical Exam Physical Exam: CONSTITUTIONAL: obese, vitals as above, generally well- appearing EYES: normal conjunctivae, no scleral icterus ENT: external ear and nose normal, MMM RESPIRATORY: clear to auscultation bilaterally, no crackles, rales or wheezes, normal respiratory effort CARDIOVASCULAR: regular rate and rhythm, S1 and 2 heard without murmurs, gallops or rubs, no JVD, no peripheral edema CHEST: inspection of chest was normal GASTROINTESTINAL: soft, nontender, nondistended, no guarding MUSCULOSKELETAL: strength 5/5 throughout, head is normocephalic and atraumatic SKIN: warm and dry NEUROLOGIC: CN 2-12 grossly intact, no sensory deficit, normal cognition, normal speech, no tremor PSYCHIATRIC: alert cooperative and oriented to person, place and time. Euthymic mood, makes good eye contact, language grossly intact, recent and remote memory grossly intact. Results & Data Results & Data ([facility]) Vital Signs (Past 12 Hours) Vital Signs Temp Pulse Pulse Resp BP Pulse Ox 04/21/21 16:02 36.9 C 72 18 175/106 H 04/21/21 12:07 36.9 C 72 20 178/121 H 90 04/21/21 08:01 36.9 C 80 18 178/102 H 94 04/21/21 08:00 71 Laboratory Results Short CBC 04/20/21 04/21/21 Range/Units 17:48 06:19 WBC 5.01 4.56 L (4.8-10.8) K/uL Hgb 15.3 15.3 (14.0-18.0) g/dL Hct 43.8 43.7 (42-52) % Plt Count 152 149 (130-400) K/uL BMP 04/20/21 04/21/21 17:48 06:19 Sodium 138 137 Potassium 3.6 4.1 Chloride 105 104 Carbon Dioxide 26 26 BUN 13 13 Creatinine 1.01 1.05 Glucose 79 100 H Calcium 8.8 8.9 Cardiac Enzymes 04/20/21 Range/Units 17:48 Troponin I < 0.015 (0-0.045) ng/ml Liver Function 04/20/21 04/21/21 Range/Units 17:48 06:19 Total Bilirubin 1.4 H 1.5 H (0.2-1) mg/dl Direct Bilirubin 0.4 H (0-0.2) mg/dl AST 60 H 52 H (15-37) U/L ALT 69 65 (12-78) U/L Alkaline Phosphatase 54 49 (45-117) U/L Albumin 3.7 3.5 (3.4-5.0) gm/dl Medications Administered Current Inpatient Medications Aspirin (Aspirin 81 Mg Ectab) 81 mg PO [facility] Stop: 05/21/21 08:59 Last Admin: 04/21/21 08:23 Dose: 81 mg Documented by: Atorvastatin Calcium (Atorvastatin 40 Mg Tab) 80 mg PO [facility] Stop: 05/21/21 08:59 Last Admin: 04/21/21 08:23 Dose: 80 mg Documented by: Atropine Sulfate (Atropine Sulfate 0.1 Mg/Ml 5ml Syr) 1 mg IV Q3M PRN PRN Reason: symptomatic bradycardia Stop: 05/21/21 03:41 Enoxaparin Sodium (Enoxaparin Inj 40 Mg/0.4 Ml Syr) 40 mg SQ [facility] Stop: 05/21/21 08:59 Last Admin: 04/21/21 08:24 Dose: Not Given Documented by: Folic Acid (Folic Acid 1 Mg Tab) 1 mg PO [facility] Stop: 05/21/21 08:59 Last Admin: 04/21/21 08:23 Dose: 1 mg Documented by: Lorazepam (Ativan) 1 mg in 2 mls @ 2 mls/min IV UD PRN; Protocol PRN Reason: EtOH Withdrawl AWSS Score 6,7 Stop: 05/21/21 01:32 Lorazepam (Ativan) 2 mg in 4 mls @ 4 mls/min IV UD PRN; Protocol PRN Reason: EtOH Withdrawl AWSS Score 8,9 Stop: 05/21/21 01:32 Lorazepam (Ativan) 3 mg in 6 mls @ 4 mls/min IV ONCE PRN; Protocol PRN Reason: EtOH Withdrawl AWSS Score >=10 Stop: 05/21/21 01:32 Promethazine HCl 12.5 mg/ (Sodium Chloride) 50.5 mls @ 202 mls/hr IV Q6H PRN PRN Reason: Nausea And Vomiting Stop: 05/21/21 01:32 Potassium Chloride 40 meq/ (Sodium Chloride) 1,020 mls @ 50 mls/hr IV .[id number] Stop: 04/21/21 22:08 Last Admin: 04/21/21 02:20 Dose: 50 mls/hr Documented by: Miscellaneous Information (Pharmacist Discharge Med Rec Consult) 1 ea N/A UD PRN PRN Reason: Consult Stop: 05/21/21 01:32 Multivitamins ([facility]ivitamin Tab) [facility] [place]: 05/21/21 08:59 Last Admin: 04/21/21 08:23 Dose: 1 tab Documented by: Nitroglycerin (Nitroglycerin Sl 0.4 Mg/Tab Tab) 0.4 mg SL UD PRN PRN Reason: Chest Pain Stop: 05/21/21 01:32 Oxycodone HCl (Oxycodone Hcl Ir 5 Mg Tab (Immediate Release)) 5 mg PO Q4H PRN PRN Reason: Pain Stop: 05/05/21 01:32 Thiamine HCl (Thiamine Hcl 100 Mg Tab) 100 mg PO [facility] Stop: 05/21/21 08:59 Last Admin: 04/21/21 08:23 Dose: 100 mg Documented by:
[2021-04-21] MEDS ORDERED: lisinopril 10 MG TAB PO SCH (16:30)
[2021-04-21] MEDS ORDERED: lisinopril 5 MG TAB PO SCH (21:00)
--- NOTE | 2021-04-22 05:35 | Electrocardiogram Report ---
Test Reason : Blood Pressure : / mmHG Vent. Rate : 084 BPM Atrial Rate : 084 BPM P-R Int : 158 ms QRS Dur : 098 ms QT Int : 410 ms P-R-T Axes : 038 -25 044 degrees QTc Int : 484 ms Normal sinus rhythm Possible Left atrial enlargement Left ventricular hypertrophy Prolonged QT Abnormal ECG No previous ECGs available Confirmed by Abel Giraldo ([id number]) on 04/22/2021 5:34:57 AM Referred By: REFERRED SELF Confirmed By:Abel Giraldo
--- NOTE | 2021-04-22 05:41 | Electrocardiogram Report ---
Test Reason : Blood Pressure : / mmHG Vent. Rate : 059 BPM Atrial Rate : 059 BPM P-R Int : 162 ms QRS Dur : 104 ms QT Int : 478 ms P-R-T Axes : 029 -23 -32 degrees QTc Int : 473 ms Sinus bradycardia with sinus arrhythmia Cannot rule out Anterior infarct , age undetermined T wave abnormality, consider anterolateral ischemia Abnormal ECG When compared with ECG of 20-APR-2021 17:51, Nonspecific T wave abnormality now evident in Inferior leads T wave inversion now evident in Anterolateral leads Confirmed by Abel Giraldo ([id number]) on 04/22/2021 5:41:26 AM Referred By: REFERRED SELF Confirmed By:Abel Giraldo
[2021-04-22 07:59] LABS: Red Blood Count 4.54 M/uL (4.7-6.1); White Blood Count 4.55 K/uL (4.8-10.8)
[2021-04-22 08:00] LABS: Hemoglobin 15.3 g/dL (14.0-18.0); Mean Corpuscular Hemoglobin 33.7 pg (25-34); Mean Corpuscular Volume 99.1 fL (80-100); Mean Platelet Volume 8.7 fL (7.4-10.4); Platelet Count 165 K/uL (130-400); RDW Coefficient of Variation 14.1 % (11.5-14.5); RDW Standard Deviation 50.9 fL (36.4-46.3)
[2021-04-22] MEDS ORDERED: hydrALAZINE HCL 20 MG/ML VIAL IV STA ×2 (08:11→12:14)
[2021-04-22 08:24] LABS: BUN Creatinine Ratio 13.5 (10-20); C Reactive Protein 0.3 mg/dl (0-0.29); Calcium 8.6 mg/dl (8.5-10.1); Creatinine Clr Calc Pharmacy 101.4 ml/min; Est GFR (African American) 85.5 ml/min; Est GFR (Non-African American) 73.8 ml/min; Potassium 4.1 mmol/L (3.5-5.1)
[2021-04-22] MEDS: ASPIRIN 81 MG ECTAB PO SCH (08:34)
[2021-04-22] MEDS: FOLIC ACID 1 MG TAB PO SCH (08:34)
[2021-04-22] MEDS: ATORVASTATIN 40 MG TAB PO SCH (08:34)
[2021-04-22] MEDS: THIAMINE HCL 100 MG TAB PO SCH (08:34)
[2021-04-22] MEDS: MULTIVITAMIN TAB PO SCH (08:34)
[2021-04-22] MEDS: ENOXAPARIN INJ 40 MG/0.4 ML SYR SQ SCH (08:35)
[2021-04-22] MEDS: LISINOPRIL/HCTZ 20/12.5MG 1 TAB TAB PO SCH (09:14)
[2021-04-22] MEDS ORDERED: LORazepam 0.5 MG TAB PO STA (10:03)
[2021-04-22] MEDS ORDERED: CLOPIDOGREL BISULFATE 75 MG TAB PO ONE (12:15)
--- NOTE | 2021-04-22 13:21 | Communication Note ---
Date of Service: April 22, 2021 I am following up on Hawk by chart review as yesterday's exam really was pretty unremarkable with the exception of some mild speech hesitancy and I could not test his reading or writing as there was very little material in the Covid unit to permit me to do so He will need some form speech therapy after discharge in light of his [id number] 150/80-90 range I see no mention of atrial fibrillation so I would assume this has not occurred The echocardiogram shows some left-ventricular hypertrophy not unsurprisingly this man's longstanding hypertension which has been untreated but poorly does not show anything that would be consistent with a post Covid cardiomyopathy shows no clear evidence for potential cardiogenic emboli I would suggest he be continued on dual antiplatelet therapy for 21 days with both Plavix and aspirin and that he then be switched over to a baby aspirin only as he was taking neither of these drugs in the outpatient basis You will need to be seen in neurology for follow-up and at this point we will place the Zio patch and monitor for paroxysmal atrial fibrillation as this cerebral event appears to be embolic Neurology is going to sign off the case at this time and will arrange follow up in our [facility] Office He will need some outpatient speech therapy for his dyslexia Dr. Fuentes will be assuming the service tomorrow and can be contacted should there be any questions about Mr. Jennings or any change in his neurologic status Jg Wilkinson MD
--- NOTE | 2021-04-22 13:24 | Hospitalist Progress Note ---
Date of Service April 22, 2021 Assessment & Plan (1) Occipital stroke: Plan: covid-positive alcohol use, tobacco use, obesity and uncontrolled hypertension are all risk factors. DAPT per Neuro with Plavix stopped after 3 weeks. He is without deficits and reports his vision has now returned to normal. Cont atorvastatin. Echo reflects long standing hypertension. (2) Hypertensive crisis: Plan: Remains too high. Started lis/HCTZ today and gave parenteral hydralazine with new BP 170/100. Stroke symptoms were one week ago. Notably, alcohol withdrawal may cause worsened hypertension. However, patient reports his last drink was Sat, which was 5 days ago, and he is currently fine without withdrawal symptoms. Also he uses snuff and is not taking nicotine replacement. He also has a large neck circumference and a PSG as outpatient would be recommended to rule out secondary hypertension from ROWENA. Cont with daily Zestoretic started this am. Parenteral agents today for goal <150 systolic. Low salt diet. Cont to treat any withdrawal as needed. (3) SARS-CoV-2 positive: Plan: Asymptomatic. Reports a h/o infection and vaccination in January 2021. No need for treatments at this time. Cont isolation for 10 days since positive test. (4) Tobacco use disorder: Plan: Uses snuff regularly, declines nicotine supplementation at this time. Also, may be contributing to elevated BP. (5) Alcohol dependence: Plan: No S/Sx of withdrawal, except that he is hypertensive. Lorazepam PRN (6) Alcoholic hepatitis: Plan: Elevated LFTs and total bili 1.5. No indication for steroids. Likely related to alcohol use. Should not preclude use of statin therapy for secondary prevention of stroke. I counseled him on the risks here and effects on his liver. Will need to stop alcohol altogether. Repeat labwork as outpatient with PCP and further investigation into this as needed. (7) Obesity: Plan: Lifestyle changes recommended. He will also need a sleep study after discharge in setting of HTN as this may be secondary to uncontrolled sleep apnea. (8) DVT prophylaxis: Plan: Lovenox Full Dispo-to home in am when BP in a more controlled range. [facility] Hospitalist Admission and Anticipated Discharge Date Admission Date: April 20, 2021 Subjective 50 yo M who is dependent on alcohol, reportedly drinks 1.5 case per day, stopped on Monday prior to admission because of stroke symptoms. Also chews snuff regularly. Doesn't feel any withdrawal symptoms. Denies headache or visual changes. Denies any respiratory symptoms including no cough, fevers, chills, diarrhea, SOB. Previous COVID infection and a vaccination in January. Tolerating PO Asymptomatic overall Remains hypertensive overnight Review of Systems Review of Systems: At least ten systems were reviewed and negative except as indicated in HPI above. Physical Exam Physical Exam: CONSTITUTIONAL: obese, vitals as above, generally well- appearing EYES: normal conjunctivae, no scleral icterus ENT: external ear and nose normal, MMM RESPIRATORY: clear to auscultation bilaterally, no crackles, rales or wheezes, normal respiratory effort CARDIOVASCULAR: regular rate and rhythm, S1 and 2 heard without murmurs, gallops or rubs, no JVD, no peripheral edema CHEST: inspection of chest was normal GASTROINTESTINAL: soft, nontender, nondistended, no guarding MUSCULOSKELETAL: strength 5/5 throughout, head is normocephalic and atraumatic SKIN: warm and dry NEUROLOGIC: CN 2-12 grossly intact, no sensory deficit, normal cognition, normal speech, no tremor PSYCHIATRIC: alert cooperative and oriented to person, place and time. Euthymic mood, makes good eye contact, language grossly intact, recent and remote memory grossly intact. Results & Data Results & Data ([facility]) Vital Signs (Past 12 Hours) Vital Signs Temp Pulse Pulse Resp BP BP Pulse Ox 04/22/21 10:59 36.9 C 76 18 189/108 H 96 04/22/21 09:45 178/108 H 04/22/21 07:35 72 04/22/21 07:17 37.1 C 83 19 181/109 H 97 04/22/21 04:24 36.5 C 79 22 153/108 H 97 04/22/21 04:13 86 Laboratory Results Short CBC 04/22/21 Range/Units 07:36 WBC 4.55 L (4.8-10.8) K/uL Hgb 15.3 (14.0-18.0) g/dL Hct 45.0 (42-52) % Plt Count 165 (130-400) K/uL BMP 04/22/21 07:36 Sodium 136 Potassium 4.1 Chloride 106 Carbon Dioxide 24 BUN 15 Creatinine 1.13 Glucose 109 H Calcium 8.6 Medications Administered Current Inpatient Medications Aspirin (Aspirin 81 Mg Ectab) 81 mg PO [facility] Stop: 05/21/21 08:59 Last Admin: 04/22/21 08:34 Dose: 81 mg Documented by: Atorvastatin Calcium (Atorvastatin 40 Mg Tab) 80 mg PO [facility] Stop: 05/21/21 08:59 Last Admin: 04/22/21 08:34 Dose: 80 mg Documented by: Atropine Sulfate (Atropine Sulfate 0.1 Mg/Ml 5ml Syr) 1 mg IV Q3M PRN PRN Reason: symptomatic bradycardia Stop: 05/21/21 03:41 Clopidogrel Bisulfate (Clopidogrel Bisulfate 75 Mg Tab) 75 mg PO [facility] Stop: 05/23/21 08:59 Enoxaparin Sodium (Enoxaparin Inj 40 Mg/0.4 Ml Syr) 40 mg SQ [facility] Stop: 05/21/21 08:59 Last Admin: 04/22/21 08:35 Dose: 40 mg Documented by: Folic Acid (Folic Acid 1 Mg Tab) 1 mg PO [facility] Stop: 05/21/21 08:59 Last Admin: 04/22/21 08:34 Dose: 1 mg Documented by: Lisinopril/HCTZ (Lisinopril/Hctz 20/12.5mg 1 Tab Tab) 1 tab PO [facility] Stop: 05/22/21 08:59 Last Admin: 04/22/21 09:14 Dose: 1 tab Documented by: Lorazepam (Ativan) 1 mg in 2 mls @ 2 mls/min IV UD PRN; Protocol PRN Reason: EtOH Withdrawl AWSS Score 6,7 Stop: 05/21/21 01:32 Lorazepam (Ativan) 2 mg in 4 mls @ 4 mls/min IV UD PRN; Protocol PRN Reason: EtOH Withdrawl AWSS Score 8,9 Stop: 05/21/21 01:32 Lorazepam (Ativan) 3 mg in 6 mls @ 4 mls/min IV ONCE PRN; Protocol PRN Reason: EtOH Withdrawl AWSS Score >=10 Stop: 05/21/21 01:32 Promethazine HCl 12.5 mg/ (Sodium Chloride) 50.5 mls @ 202 mls/hr IV Q6H PRN PRN Reason: Nausea And Vomiting Stop: 05/21/21 01:32 Miscellaneous Information (Pharmacist Discharge Med Rec Consult) 1 ea N/A UD PRN PRN Reason: Consult Stop: 05/21/21 01:32 Multivitamins (Multivitamin Tab) 1 tab PO [facility] Stop: 05/21/21 08:59 Last Admin: 04/22/21 08:34 Dose: 1 tab Documented by: Nitroglycerin (Nitroglycerin Sl 0.4 Mg/Tab Tab) 0.4 mg SL UD PRN PRN Reason: Chest Pain Stop: 05/21/21 01:32 Oxycodone HCl (Oxycodone Hcl Ir 5 Mg Tab (Immediate Release)) 5 mg PO Q4H PRN PRN Reason: Pain Stop: 05/05/21 01:32 Thiamine HCl (Thiamine Hcl 100 Mg Tab) 100 mg PO [facility] Stop: 05/21/21 08:59 Last Admin: 04/22/21 08:34 Dose: 100 mg Documented by:
[2021-04-22] MEDS ORDERED: LABETALOL HCL IV 5 MG/ML 20ML IV STA (16:34)
[2021-04-22] MEDS: hydrALAZINE HCL 20 MG/ML VIAL IV PRN (19:26)
[2021-04-23 07:36] LABS: Albumin Globulin Ratio 0.8 (0.9-2); Albumin Level 3.5 gm/dl (3.4-5.0); BUN Creatinine Ratio 13.9 (10-20); Bilirubin,Total 1.2 mg/dl (0.2-1); Calcium 8.9 mg/dl (8.5-10.1); Creatinine Clr Calc Pharmacy 101.4 ml/min; Est GFR (African American) 86.5 ml/min; Est GFR (Non-African American) 74.6 ml/min; Globulin 4.2 gm/dl (2.5-4.0); Potassium 4.1 mmol/L (3.5-5.1); Total Protein 7.7 gm/dl (6.4-8.2)
[2021-04-23] MEDS: hydrALAZINE HCL 20 MG/ML VIAL IV PRN (07:38)
[2021-04-23] MEDS: THIAMINE HCL 100 MG TAB PO SCH (07:38)
[2021-04-23] MEDS: ENOXAPARIN INJ 40 MG/0.4 ML SYR SQ SCH (07:38)
[2021-04-23] MEDS: ATORVASTATIN 40 MG TAB PO SCH (07:38)
[2021-04-23] MEDS: FOLIC ACID 1 MG TAB PO SCH (07:39)
[2021-04-23] MEDS: LISINOPRIL/HCTZ 20/12.5MG 1 TAB TAB PO SCH (07:39)
[2021-04-23] MEDS: ASPIRIN 81 MG ECTAB PO SCH (07:39)
[2021-04-23] MEDS: MULTIVITAMIN TAB PO SCH (07:39)
[2021-04-23] MEDS ORDERED: CLOPIDOGREL BISULFATE 75 MG TAB PO SCH (09:00)
--- NOTE | 2021-04-23 14:20 | Hospitalist Progress Note ---
Date of Service April 23, 2021 Assessment & Plan (1) Occipital stroke: Plan: Risk factors -tobacco use, obesity and uncontrolled hypertension and is complicated by covid-positive alcohol use. MRI of the head showed 2.7 cm focus of restricted diffusion within the left occipital lobe consistent with an acute infarct. No hemorrhage and no mass- effect Appreciate neurology input and recommendation We will continue to have speech evaluation at [facility] DAPT per Neuro with Plavix stopped after 3 weeks. He is without deficits and reports his vision has now returned to normal. Cont atorvastatin. Echo reflects long standing hypertension. Medically stable to be discharged today. We will have outpatient neuro appointment for further testing as mentioned. (2) Hypertensive crisis: Plan: Remains too high. Started lis/HCTZ today and gave parenteral hydralazine with new BP 170/100. Stroke symptoms were one week ago. Notably, alcohol withdrawal may cause worsened hypertension. However, patient reports his last drink was Sat, which was 5 days ago, and he is currently fine without withdrawal symptoms. Also he uses snuff and is not taking nicotine replacement. He also has a large neck circumference and a PSG as outpatient would be recommended to rule out secondary hypertension from ROWENA. Cont with daily Zestoretic started this am. Low salt diet. Cont to treat any withdrawal as needed-no withdrawal symptoms. No anxiety, no tachycardia, no tremors and no instability in gait Blood pressure remains elevated at 162/88 but is improved compared with date of admission He was strongly advised to take medications regularly We will recommend for a sleep study as an outpatient (3) SARS-CoV-2 positive: Plan: Asymptomatic. Reports a h/o infection and vaccination in January 2021. No need for treatments at this time. Cont isolation for 10 days since positive test. (4) Tobacco use disorder: Plan: Uses snuff regularly, declines nicotine supplementation at this time. Also, may be contributing to elevated BP. (5) Alcohol dependence: Plan: No S/Sx of withdrawal, except that he is hypertensive. Lorazepam PRN Advised to quit drinking (6) Alcoholic hepatitis: Plan: Elevated LFTs and total bili 1.5. No indication for steroids. Likely related to alcohol use. Should not preclude use of statin therapy for secondary prevention of stroke. I counseled him on the risks here and effects on his liver. Will need to stop alcohol altogether. Repeat labwork as outpatient with PCP and further investigation into this as needed. (7) Obesity: Plan: Lifestyle changes recommended. He will also need a sleep study after discharge in setting of HTN as this may be secondary to uncontrolled sleep apnea. (8) DVT prophylaxis: Plan: Lovenox Full Dispo-to home in am when BP in a more controlled range. t Admission and Anticipated Discharge Date Admission Date: April 20, 2021 Subjective 04/23/2021 The patient was seen and examined in telemetry unit and in the Covid room He denies any symptoms and has been ambulating in the room without any difficulties His blood pressure seems to be reasonably controlled with systolic 162 and diastolic 98 He wants to go home this afternoon and will be sent home Review of Systems Review of Systems: All systems reviewed and are unremarkable except as noted below Physical Exam Physical Exam: Sitting on a chair without any acute distress Constitutional: well developed, well nourished and + obese; not ill appearing Eyes: PERRL, conjunctivae normal, anicteric sclerae ENMT: external ear and nose normal, oropharynx normal Neck: trachea midline, no thyromegaly Respiratory: no respiratory distress Auscultation: lungs clear to auscultation bilaterally Cardiovascular: Rate/Rhythm: regular rate and regular rhythm; not tachycardic Heart Sounds: normal S1 and normal S2; no murmur Gastrointestinal (Abdomen): Inspection/Auscultation: normal bowel sounds; abdomen not distended Percussion/Palpation: abdomen soft; abdomen nontender Musculoskeletal: No acute arthritis in any joint Neurologic: Alert, awake and oriented x3. No focal sensory and motor deficit appreciated Lymphatic: no cervical or axillary lymphadenopathy Results & Data Results & Data ([facility]) Vital Signs (Past 12 Hours) Vital Signs Temp Pulse Pulse Resp BP BP Pulse Ox 04/23/21 12:00 36.9 C 90 20 162/98 H 95 04/23/21 09:36 155/101 H 04/23/21 07:31 36.7 C 85 170/113 H 94 04/23/21 07:25 71 04/23/21 05:23 153/94 H 04/23/21 03:14 36.8 C 82 18 161/105 H 98 Laboratory Results BMP 04/23/21 06:29 Sodium 136 Potassium 4.1 Chloride 105 Carbon Dioxide 25 BUN 16 Creatinine 1.12 Glucose 96 Calcium 8.9 Liver Function 04/23/21 Range/Units 06:29 Total Bilirubin 1.2 H (0.2-1) mg/dl AST 40 H (15-37) U/L ALT 65 (12-78) U/L Alkaline Phosphatase 53 (45-117) U/L Albumin 3.5 (3.4-5.0) gm/dl Medications Administered Current Inpatient Medications Aspirin (Aspirin 81 Mg Ectab) 81 mg PO [facility] Stop: 05/21/21 08:59 Last Admin: 04/23/21 07:39 Dose: 81 mg Documented by: Atorvastatin Calcium (Atorvastatin 40 Mg Tab) 80 mg PO [facility] Stop: 05/21/21 08:59 Last Admin: 04/23/21 07:38 Dose: 80 mg Documented by: Clopidogrel Bisulfate (Clopidogrel Bisulfate 75 Mg Tab) 75 mg PO [facility] Stop: 05/23/21 08:59 Last Admin: 04/23/21 07:38 Dose: 75 mg Documented by: Enoxaparin Sodium (Enoxaparin Inj 40 Mg/0.4 Ml Syr) 40 mg SQ [facility] Stop: 05/21/21 08:59 Last Admin: 04/23/21 07:38 Dose: 40 mg Documented by: Folic Acid (Folic Acid 1 Mg Tab) 1 mg PO [facility] Stop: 05/21/21 08:59 Last Admin: 04/23/21 07:39 Dose: 1 mg Documented by: Lisinopril/HCTZ (Lisinopril/Hctz 20/12.5mg 1 Tab Tab) 1 tab PO [facility] Stop: 05/22/21 08:59 Last Admin: 04/23/21 07:39 Dose: 1 tab Documented by: Hydralazine HCl (Hydralazine Hcl 20 Mg/Ml Vial) 10 mg IV Q6H PRN PRN Reason: SBP>160 Stop: 05/22/21 16:33 Last Admin: 04/23/21 07:38 Dose: 10 mg Documented by: Lorazepam (Ativan) 1 mg in 2 mls @ 2 mls/min IV UD PRN; Protocol PRN Reason: EtOH Withdrawl AWSS Score 6,7 Stop: 05/21/21 01:32 Lorazepam (Ativan) 2 mg in 4 mls @ 4 mls/min IV UD PRN; Protocol PRN Reason: EtOH Withdrawl AWSS Score 8,9 Stop: 05/21/21 01:32 Lorazepam (Ativan) 3 mg in 6 mls @ 4 mls/min IV ONCE PRN; Protocol PRN Reason: EtOH Withdrawl AWSS Score >=10 Stop: 05/21/21 01:32 Promethazine HCl 12.5 mg/ (Sodium Chloride) 50.5 mls @ 202 mls/hr IV Q6H PRN PRN Reason: Nausea And Vomiting Stop: 05/21/21 01:32 Miscellaneous Information (Pharmacist Discharge Med Rec Consult) 1 ea N/A UD PRN PRN Reason: Consult Stop: 05/21/21 01:32 Multivitamins ([facility]itamin Tab) [facility] [place] Stop: 05/21/21 08:59 Last Admin: 04/23/21 07:39 Dose: 1 tab Documented by: Nitroglycerin (Nitroglycerin Sl 0.4 Mg/Tab Tab) 0.4 mg SL UD PRN PRN Reason: Chest Pain Stop: 05/21/21 01:32 Oxycodone HCl (Oxycodone Hcl Ir 5 Mg Tab (Immediate Release)) 5 mg PO Q4H PRN PRN Reason: Pain Stop: 05/05/21 01:32 Thiamine HCl (Thiamine Hcl 100 Mg Tab) [facility] [place] Stop: 05/21/21 08:59 Last Admin: 04/23/21 07:38 Dose: 100 mg Documented by:
[2021-04-23] MEDS ORDERED: STROKE PATIENT DISCHARGE STA (14:27)
--- NOTE | 2021-04-23 14:54 | Pharmacy Report ---
Pharmacist Stroke Counseling - Date of Service April 23, 2021 - Scope: Pharmacy has been consulted to provide medication discharge counseling for this patient admitted with ischemic stroke as per the Pharmacist Discharge Counseling for Stroke Patients Protocol. - Medications on Discharge: New Rx's Medication Instructions Recorded aspirin 81 mg tablet,delayed 81 mg PO QAM #30 tab 04/23/21 release atorvastatin 40 mg tablet 80 mg PO QAM #30 tab 04/23/21 clopidogrel 75 mg tablet 75 mg PO QAM #18 tab 04/23/21 folic acid 1 mg tablet 1 mg PO QAM #30 tab 04/23/21 lisinopril 20 1 tab PO QAM #30 tab 04/23/21 mg-hydrochlorothiazide 12.5 mg tablet multivitamin with folic acid 400 1 tab PO QAM #30 tab 04/23/21 mcg tablet (Daily-Isael (with folic acid)) thiamine HCl (vitamin B1) 100 mg 100 mg PO QAM #30 tab 04/23/21 tablet (Vitamin B-1) - Action: The above medications, specifically ones for stroke treatment/prophylaxis, have been reviewed in detail with the patient and/or patient dealer compliance representative(s) prior to discharge. This includes indication, common adverse reactions, drug interactions, and medication administration. Medication counseling has been employed using the teach-back method to ensure understanding. - Outcome: The patient and/or patient dealer compliance representative(s) have demonstrated understanding of the medications. Additional comments: Spoke over the phone with Mr Dick sheth. Reviewed new medications to prevent stroke including Aspirin, Plavix, Atorvastatin and lisinopril/hctz. Discussed why they are being used and common side effects in great detail. Reviewed how to use the medications, what to do if doses are missed, common drug interactions, common side effects, what to watch out for while using the medications, and how to store the medications. Pt verbalized understanding and restated the [place] points of each medication. Thank you for allowing pharmacy to be involved in the care of this patient. Please call [phone] with any additional questions
--- NOTE | 2021-04-24 08:02 | Discharge Summary ---
Date of Service April 24, 2021 Admission HPI Per Admitting Provider History obtained from patient and records. Medical history significant for hypertension, alcohol abuse, past tobacco abuse, medication noncompliance. Patient has not seen his PCP for about 4 years. Last office visit October 2016. Patient also stopped taking lisinopril for blood pressure at that time because he did not think he needed it. Patient having trouble reading words the last few days. Vision not blurred. Not able to understand what I am reading as per patient. No prior episodes. No headache, no chest pain, no S OB, no cough. No arm/leg weakness. No slurred speech or facial droop noted by . SBP 200s at PCPs office today. Patient directed to ER for further management. Aspirin and labetalol administered at the ER. Medical History as above Patient completed COVID-19 vaccination. 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, general maintenance mechanic Admission Exam Per Admitting Provider Physical Exam: GENERAL: Comfortable, morbidly obese, pleasant, no respiratory distress SKIN: Normal color, warm HEENT: Healed scar frontal area, Leal palpebral conjunctivae, no ptosis, dry buccal mucosa NECK : Supple, short neck, no tenderness CHEST : CTA, no tenderness HEART : RRR, no obvious murmurs ABDOMEN: Some distention, nontender EXTREMITIES : Minimal LE swelling, no LE tenderness, no other conspicuous deformities noted NEUROLOGIC : Coherent, gross visual activity intact, no facial asymmetry, no other gross focality Principal Diagnosis Left occipital infarct, hypertensive crisis, asymptomatic COVID-19 infection status post vaccination Discharge Exam Constitutional well developed, well nourished and + obese; not ill appearing Eyes PERRL, conjunctivae normal, anicteric sclerae ENMT external ear and nose normal, oropharynx normal Neck trachea midline, no thyromegaly Respiratory no respiratory distress Auscultation: lungs clear to auscultation bilaterally Cardiovascular Rate/Rhythm: regular rate and regular rhythm; not tachycardic Heart Sounds: normal S1 and normal S2; no murmur Gastrointestinal (Abdomen) Inspection/Auscultation: normal bowel sounds; abdomen not distended Percussion/Palpation: abdomen soft; abdomen nontender Lymphatic no cervical or axillary lymphadenopathy Discharge Data Allergies Allergy/AdvReac Type Severity Reaction Status Date / Time No Known Allergies Allergy Unverified 04/20/21 20:50 Consultations 04/20/21 21:05 ED Decision to Admit Stat 04/21/21 01:33 Consult Neurology Routine Ordered Studies 04/20/21 19:47 CT head/brain wo con Stat 04/20/21 21:05 MR brain wo/w con Stat 04/20/21 21:12 CT angio head w con Urgent CT angio neck with con Urgent Hospital Course (1) Occipital stroke: Risk factors -tobacco use, obesity and uncontrolled hypertension and is complicated by covid-positive alcohol use. MRI of the head showed 2.7 cm focus of restricted diffusion within the left occipital lobe consistent with an acute infarct. No hemorrhage and no mass- effect Appreciate neurology input and recommendation We will continue to have speech evaluation at [facility] per Neuro with Plavix stopped after 3 weeks. He is without deficits and reports his vision has now returned to normal. Cont atorvastatin. Echo reflects long standing hypertension. Medically stable to be discharged today. We will have outpatient neuro appointment for further testing as mentioned. (2) Hypertensive crisis: Remains too high. Started lis/HCTZ today and gave parenteral hydralazine with new BP 170/100. Stroke symptoms were one week ago. Notably, alcohol withdrawal may cause worsened hypertension. However, patient reports his last drink was Sat, which was 5 days ago, and he is currently fine without withdrawal symptoms. Also he uses snuff and is not taking nicotine replacement. He also has a large neck circumference and a PSG as outpatient would be recommended to rule out secondary hypertension from [place]. Cont with daily Zestoretic started this am. Low salt diet. Cont to treat any withdrawal as needed-no withdrawal symptoms. No anxiety, no tachycardia, no tremors and no instability in gait Blood pressure remains elevated at 162/88 but is improved compared with date of admission He was strongly advised to take medications regularly We will recommend for a sleep study as an outpatient (3) SARS-CoV-2 positive: Asymptomatic. Reports a h/o infection and vaccination in January 2021. No need for treatments at this time. Cont isolation for 10 days since positive test. (4) Tobacco use disorder: Uses snuff regularly, declines nicotine supplementation at this time. Also, may be contributing to elevated BP. (5) Alcohol dependence: No S/Sx of withdrawal, except that he is hypertensive. Lorazepam PRN Advised to quit drinking (6) Alcoholic hepatitis: Elevated LFTs and total bili 1.5. No indication for steroids. Likely related to alcohol use. Should not preclude use of statin therapy for secondary prevention of stroke. I counseled him on the risks here and effects on his liver. Will need to stop alcohol altogether. Repeat labwork as outpatient with PCP and further investigation into this as needed. (7) Obesity: Lifestyle changes recommended. He will also need a sleep study after discharge in setting of HTN as this may be secondary to uncontrolled sleep apnea. (8) DVT prophylaxis: Lovenox Full Dispo-to home in am when BP in a more controlled range. t Total Time Total Time Spent Total Time Spent (In Minutes): 40 minutes Discharge Plan Discharge Items Patient Disposition: Home - Self-Care Reason For Visit: HTN CRISIS, CVA Discharge Diagnosis: Left occipital infarct, hypertensive crisis, asymptomatic COVID-19 infection status post vaccination Condition on Discharge: Fair Activity: Resume your previous activity Non-emergency contact: Primary Care Provider Call non-emergency contact if: you have any medication questions and your symptoms worsen Follow-up/Referrals: Yesenia Angel PA-C [Physician Hardness Inspector] - (Date & Time 07/05/2021 11:20 AM Provider Yesenia Angel PA-C Department Neurology [facility] ) Bhavesh José DO [Primary Care Provider] - (Date & Time 04/29/2021 11:20 AM Provider Bhavesh José DO Department Family Practice [facility] PLEASE NOTE THAT THIS IS A TELEPHONE APPOINTMENT. YOUR PHYSICIAN WILL CALL YOU AT THE APPOINTMENT TIME. IF YOU HAVE ANY QUESTIONS REGARDING THIS APPOINTMENT, PLEASE CALL ) Diet: Heart Healthy and Low Sodium (2gm) Addtl Attending Provider Instructions: Please take your medications regularly Attend a speech therapy evaluation session as recommended Quit drinking of alcohol and quit smoking You need to have an outpatient polysomnography to rule out sleep apnea Please keep your appointment with your providers COVID-19 isolation for 10 days starting from this Monday(04/20/2021) as below Home Isolation COVID-19 Instructions The following information about Home Isolation is from the CDC Website: https://www.cdc.gov/coronavirus/2019-ncov/hcp/admgbldu-qdarowt-ffciof.html Stay home except to get medical care People who are mildly ill with COVID-19 are able to isolate at home during their illness. You should restrict activities outside your home, except for getting medical care. Do not go to work, school, or public areas. Avoid using public transportation, ride-sharing, or taxis. Separate yourself from other people and animals in your home People: As much as possible, you should stay in a specific room and away from other people in your home. Also, you should use a separate bathroom, if avai lable. Animals: You should restrict contact with pets and other animals while you are sick with COVID-19, just like you would around other people. Although there have not been reports of pets or other animals becoming sick with COVID-19, it is still recommended that people sick with COVID-19 limit contact with animals until more information is known about the virus. When possible, have another member of your household care for your animals while you are sick. If you are sick with COVID-19, avoid contact with your pet, including petting, snuggling, being kissed or licked, and sharing food. If you must care for your pet or be around animals while you are sick, wash your hands before and after you interact with pets and wear a face mask. Call ahead before visiting your doctor If you have a medical appointment, call the healthcare provider and tell them that you have or may have COVID-19. This will help the healthcare providers office take steps to keep other people from getting infected or exposed. Wear a face mask You should wear a face mask when you are around other people (e.g., sharing a room or vehicle) or pets and before you enter a healthcare providers office. If you are not able to wear a face mask (for example, because it causes trouble breathing), then people who live with you should not stay in the same room with you, or they should wear a face mask if they enter your room. Cover your coughs and sneezes Cover your mouth and nose with a tissue when you cough or sneeze. Throw used tissues in a lined trash can. Immediately wash your hands with soap and water for at least 20 seconds or, if soap and water are not available, clean your hands with an alcohol-based hand superintendent transmission that contains at least 60% alcohol. Clean your hands often Wash your hands often with soap and water for at least 20 seconds, especially after blowing your nose, coughing, or sneezing; going to the bathroom; and before eating or preparing food. If soap and water are not readily available, use an alcohol-based hand superintendent transmission with at least 60% alcohol, covering all surfaces of your hands and rubbing them together until they feel dry. Soap and water are the best option if hands are visibly dirty. Avoid touching your eyes, nose, and mouth with unwashed hands. Avoid sharing personal household items You should not share dishes, drinking glasses, cups, eating utensils, towels, or bedding with other people or pets in your home. After using these items, they should be washed thoroughly with soap and water. Clean all high-touch surfaces everyday High touch surfaces include counters, tabletops, doorknobs, bathroom fixtures, toilets, phones, keyboards, tablets, and bedside tables. Also, clean any surfaces that may have blood, stool, or body fluids on them. Use a household cleaning spray or wipe, according to the label instructions. Labels contain instructions for safe and effective use of the cleaning product including precautions you should take when applying the product, such as wearing gloves and making sure you have good ventilation during use of the product. Monitor your symptoms Seek prompt medical attention if your illness is worsening (e.g., difficulty breathing).Beforeseeking care, call your healthcare provider and tell them that you have, or are being evaluated for, COVID-19. Put on a face mask before you enter the facility. These steps will help the healthcare providers office to keep other people in the office or waiting room from getting infected or exposed. Ask your healthcare provider to call the local or state health department. Persons who are placed under active monitoring or facilitated self- monitoring should follow instructions provided by their local health department or occupational health professionals, as appropriate. When working with your local health department check their available hours. If you have a medical emergency and need to call 911, notify the dispatch personnel that you have, or are being evaluated for COVID-19. If possible, put on a face mask before emergency medical services arrive. Discontinuing home isolation Patients with confirmed COVID-19 should remain under home isolation precautions until the risk of secondary transmission to others is thought to be low. The decision to discontinue home isolation precautions should be made on a [id number] basis, in consultation with healthcare providers and state and local health departments. Pending Studies at Discharge: No Stand-Alone Forms: My [facility], Smoking Cessation Medications and DC Order Prescriptions: New clopidogrel 75 mg Tablet 75 mg PO QAM Qty: 18 RF: 0 atorvastatin 40 mg Tablet 80 mg PO QAM Qty: 30 RF: 0 lisinopril-hydrochlorothiazide 20-12.5 mg Tablet 1 tab PO QAM Qty: 30 RF: 0 aspirin 81 mg Tablet,Delayed Release (Dr/Ec) 81 mg PO QAM Qty: 30 RF: 0 folic acid 1 mg Tablet 1 mg PO QAM Qty: 30 RF: 0 multivitamin with folic acid [Daily-Isael (with folic acid)] 400 mcg Tablet 1 tab PO QAM Qty: 30 RF: 0 thiamine HCl (vitamin B1) [Vitamin B-1] 100 mg Tablet 100 mg PO QAM Qty: 30 RF: 0 Discharge Orders: Discharge Order (Routine); Ordered 04/23/21 Ordered By: Orestes Monk/Other Patient Handouts: 5 Steps for Eating Healthier, Healthy Snacking Admission Data Admit Date/Time: 04/20/21 23:56 Attending Provider: Orestes Salcedo Admit Provider: Jorje Garcia Primary Care Provider: Bhavesh José Other Providers: Jorje Garcia ; Yesenia Angel ; Jg Wilkinson Kathleen ; Drew Fuentes ; Marilu Singh Other Interventions: Discharge Summary Assessment (RN) Last Done: 04/23/21 14:46
== END 2021-04-23 16:10 | disposition home or self-care (01) | DRG 64 ==
LOC: ED 17:09 → 2E 23:56 → SUATTDRO 23:56 → 2E 04-21 01:00